=== PATIENT | female | born 1965 | race Caucasian/White ===

== ENCOUNTER → 2023-11-30 11:27 | Outpatient (REF) | payer OTHER, SELFPAY | LOC: HWRAD 11:27 | PROVIDERS: ATTENDING PHYSICIAN Neurological Surgery; FAMILY PHYSICIAN Nurse Practitioner | DX: I72.9 Aneurysm of unspecified site (principal) | CPT/HCPCS: 70496; Q9967 ==

== ENCOUNTER → 2024-05-24 12:12 | Outpatient (REF) | payer MEDICARE, SELFPAY | LOC: HWRAD 12:12 | PROVIDERS: ATTENDING PHYSICIAN Nurse Practitioner Adult Health | DX: J18.9 Pneumonia, unspecified organism (principal); R07.9 Chest pain, unspecified | CPT/HCPCS: 71046 ==

== ENCOUNTER → 2024-08-02 13:22 | Outpatient (REF) | payer MEDICARE, SELFPAY | LOC: HWRAD 13:22 | PROVIDERS: ATTENDING PHYSICIAN Nurse Practitioner Adult Health | DX: Z87.891 Personal history of nicotine dependence (principal) | CPT/HCPCS: 71271 ==

== ENCOUNTER → 2024-10-03 19:33 | Outpatient (REF) | payer MEDICARE, SELFPAY | LOC: MRI 19:33 | PROVIDERS: ATTENDING PHYSICIAN Internal Medicine Pulmonary Disease; FAMILY PHYSICIAN Nurse Practitioner Adult Health; REFERRING PHYSICIAN Internal Medicine Hematology & Oncology | DX: C34.90 Malignant neoplasm of unspecified part of unspecified bronchus or lung (principal); C77.1 Secondary and unspecified malignant neoplasm of intrathoracic lymph nodes | CPT/HCPCS: 70553 ==

== ENCOUNTER 2025-01-03 12:56 | Emergency (ER) | payer MEDICARE, SELFPAY ==
[2025-01-03 12:57] VITALS: BMI 27.1
[2025-01-03 12:59] VITALS: BP 154/105
[2025-01-03 14:00] VITALS: BP 84/56
[2025-01-03 14:08] VITALS: BP 85/60
[2025-01-03 14:30] VITALS: BP 85/59
--- NOTE | 2025-01-03 17:49 | ED.GENMED ---
History of Present Illness
General
Chief Complaint: Cardiac Symptoms
Time Seen by Provider: 01/03/25 14:38
History of Present Illness
History of Present Illness:
..
Past History
Past History
ED Past Medical History: HTN, Hypercholesterolemia and Other
ED Past Surgical History: Other
Social History
Tobacco: Smoker
Alcohol: Occasional
Drug: None
Employment: Employed
Family History
Family History: Other
Phy Exam
Physical Exam
Physical Exam:
..
Course
Orders/Labs/Results
Orders:
Orders
01/03/25 12:57
ECG [Electrocardiogram (*1)] Urgent
Reason for Study: Chest Pain
01/03/25 12:58
EKG- Treatment ONCE
Vital Signs
Initial and Last Documented VS:
Initial Vital Signs
Temp Pulse Resp BP Pulse Ox
98.2 F 108 20 154/105 99
01/03/25 12:59 01/03/25 12:59 01/03/25 12:59 01/03/25 12:59 01/03/25 12:59
Last Documented Vital Signs
Temp Pulse Resp BP Pulse Ox
98.2 F 75 12 85/59 96
01/03/25 12:59 01/03/25 14:30 01/03/25 14:30 01/03/25 14:30 01/03/25 14:30
MDM/Problems Addressed
MDM/Problems Addressed:
Pt eloped, not seen by me.
*Pulse Oximetry
SaO2: 96
Oxygen Mode of Delivery: Room air
Patient hypoxic: no
*Critical Care Note
Total Time (30-74mins, 75-104mins- exclusive of procedures): Not Applicable
ED Attending Note
-
Portions of this chart may have been created with voice recognition software.� Occasional wrong word or��sound alike� substitutions may have occurred due to the inherent limitations of voice recognition software.
Discharge Plan
Departure
Patient Disposition: Elopement
Prescriptions:
No Action
wriktur-ggcjgpnnmuncq-noigrcos [Excedrin Migraine] 1 TABLET tablet
1 tab PO DAILYPRN PRN (Reason: headache)
lisinopril 20 MG tablet
40 mg PO BID
spironolactone 12.5 MG tablet
12.5 mg PO DAILY
alprazolam 0.25 MG tablet
0.25 mg PO Q8HPRN PRN (Reason: anxiety)
Patient Comments:
06/01/2021: UNABLE TO FIND FILL IN [facility]
L.acidoph,paracasei,B.animalis 1 EACH capsule
2 ea PO DAILY
multivitamin with folic acid [Tab-A-Artem] 1 TABLET tablet
1 tab PO DAILY
amoxicillin-pot clavulanate 1 TABLET tablet
1 tab PO Q12 Qty: 10 0RF
potassium chloride [Klor-Con M20] 20 MEQ tablet,ER particles/crystals
20 meq PO DAILY Qty: 2 0RF
promethazine 25 MG tablet
25 mg PO Q6H PRN (Reason: nausea) Qty: 20 0RF
polyethylene glycol 3350 17 GRAMS powder in packet
17 grams PO DAILY Qty: 90 0RF
Referrals:
Dahlia Sin CRNP [Family Provider, General]
Interventions
Interventions:
*Risk Screen - Suicide Last Done: 01/03/25 13:20
*General Assessment Last Done: 01/03/25 12:59
*Neglect/Abuse Screening Last Done: 01/03/25 13:20
*ED- Fall Risk Assessment Last Done: 01/03/25 13:20
*Nursing Disposition Last Done: 01/03/25 14:53
ED- Cardiac Assessment Last Done: 01/03/25 13:31
ED- Pulmonary Assessment Last Done: 01/03/25 13:20
Discharge Date and Time
Discharge Date/Time: 01/03/25 14:55
Print Language: SWEDISH
== END 2025-01-03 14:55 | disposition left against medical advice (07) ==
LOC: EMR 12:56
PROVIDERS: EMERGENCY PHYSICIAN Emergency Medicine; FAMILY PHYSICIAN Nurse Practitioner Adult Health
DX: R07.89 Other chest pain (principal); M54.2 Cervicalgia
CPT/HCPCS: 93005

== ENCOUNTER → 2025-01-09 09:07 | Outpatient (REF) | payer MEDICARE, SELFPAY | LOC: RAD 09:07 | PROVIDERS: ATTENDING PHYSICIAN Internal Medicine Hematology & Oncology; FAMILY PHYSICIAN Nurse Practitioner Adult Health | DX: C34.92 Malignant neoplasm of unspecified part of left bronchus or lung (principal) | CPT/HCPCS: 71260; 74160; Q9967 ==

== ENCOUNTER → 2025-02-04 12:26 | Outpatient (REF) | payer MEDICARE, SELFPAY | LOC: HWRAD 12:26 | PROVIDERS: ATTENDING PHYSICIAN Nurse Practitioner Adult Health | DX: J22 Unspecified acute lower respiratory infection (principal); D84.9 Immunodeficiency, unspecified | CPT/HCPCS: 71046 ==

== ENCOUNTER → 2025-02-07 19:26 | Outpatient (REF) | payer MEDICARE, SELFPAY | LOC: MRI 19:26 | PROVIDERS: ATTENDING PHYSICIAN Radiology Radiation Oncology; FAMILY PHYSICIAN Nurse Practitioner Adult Health | DX: C34.12 Malignant neoplasm of upper lobe, left bronchus or lung (principal) | CPT/HCPCS: 70553; A9575 ==